=== PATIENT | female | born 1980 | race Hispanic/Latino ===

== ENCOUNTER 2018-07-25 14:30 | Observation (INO) | payer OTHER ==
[~2018-07-25] VITALS: Ht 167.6 cm; Wt 121.5 kg
[2018-07-25 14:30] VITALS: BP 161/100
[2018-07-25 14:52] LABS: BASOPHILS % (AUTO) 0.6 % (0.0-5.0); EOSINOPHILS % (AUTO) 0.3 % (0.0-8.0); HEMATOCRIT 37.6 % (36-48); LYMPHOCYTES % (AUTO) 17.6 % (21.0-51.0); MEAN CORPUSCULAR HEMOGLOBIN 29.3 pg (27.0-33.0); MEAN CORPUSCULAR VOLUME 86.3 fL (79-99); MONOCYTES % (AUTO) 6.2 % (3.0-13.0); NEUTROPHILS % (AUTO) 75.3 % (40.0-77.0); NUCLEATED RED BLOOD CELLS 0.1 % (0.0-0.19); PLATELET COUNT (AUTO) 306 K/uL (130-400); RED BLOOD CELL COUNT(AUTO) 4.35 MIL/uL (4.00-5.50); WHITE BLOOD COUNT (AUTO) 7.7 K/uL (4.8-10.8)
[2018-07-25 15:20] VITALS: BP 160/98
--- NOTE | 2018-07-25 15:20 | NUR ---
B/P-160/98,,ASYMPTOMATIC,,NO COMPLAINTS ,ALREADY TAKEN HER B/P MED ,STATES WORRIED OF HER DAUGHTER ,RECEIVED CALL FROM SCHOOL,COMPLAINTS OF NO CHEST PAIN ,NO SOB ,ADVISED TO COME TO ER IF ANY CHEST PAIN OR SOB ,VERBALIZES UNDERSTANDING
[2018-07-25] MEDS ORDERED: AMLO5TAB9 PO (16:00)
[2018-07-25] MEDS ORDERED: HYDR-4068 PO (16:01)
[2018-07-25] MEDS ORDERED: IBUP-2077 PO (16:01)
[2018-07-26] VITALS (25 sets, daily range): BP systolic 106–186; BP diastolic 61–108
[2018-07-26] MEDS ORDERED: CALDOLOR 800MG+NS 250ML 250 ML IV SCH (06:00)
[2018-07-26] MEDS: CLINDAMYCIN 600 MG/D5% WATER 50 ML IV SCH ×2 (06:00→07:15)
[2018-07-26] MEDS ORDERED: LACTATED RINGERS 1000ML 1,000 ML IV SCH (06:00)
[2018-07-26] MEDS ORDERED: MAGNESIUM SULFATE 1 GM/2 ML VIAL ONE (06:43)
[2018-07-26] MEDS ORDERED: KETAMINE 50MG/ML SYRINGE 50 MG/ML DISP.SYRIN IV ONE (06:43)
[2018-07-26] MEDS ORDERED: LIDOCAINE PF 2% 5ML ABBOJECT ONE (06:47)
[2018-07-26] MEDS ORDERED: SUCCINYLCHOLINE 200MG/10ML SYR ONE (06:47)
[2018-07-26] MEDS ORDERED: ONDANSETRON HCL 4 MG/2 ML VIAL ONE (06:48)
[2018-07-26] MEDS ORDERED: ROCURONIUM 10MG/1ML SYR 10 MG/ML ML ONE (06:49)
[2018-07-26] MEDS ORDERED: PROPOFOL 10 MG/ML 20ML VIAL IV ONE (06:49)
[2018-07-26] MEDS ORDERED: FENTANYL CITRATE PF 50 MCG/1 ML 5ML AMP IV ONE ×2 (06:50→07:40)
[2018-07-26] MEDS ORDERED: MIDAZOLAM HCL 1 MG/ML 2ML VIAL ONE (06:51)
[2018-07-26] MEDS ORDERED: METHYLENE BLUE 10 MG/ML AMP ONE (08:18)
[2018-07-26] MEDS ORDERED: GLYCOPYRROLATE 1 MG/5 ML SYRINGE ONE (08:27)
[2018-07-26] MEDS ORDERED: NEOSTIGMINE 5MG/5ML SYR IV ONE (08:27)
[2018-07-26] MEDS ORDERED: METOCLOPRAMIDE 10 MG/2 ML VIAL ONE (08:29)
[2018-07-26] MEDS ORDERED: DEXAMETHASONE SOD PHOSPHATE 4 MG/ML 1ML VIAL ONE (08:29)
[2018-07-26] MEDS ORDERED: HYDRALAZINE HCL 20 MG/ML VIAL ONE (09:10)
[2018-07-26] MEDS ORDERED: SIMETHICONE 80 MG TAB.CHEW PO PRN ×2 (09:15→16:30)
[2018-07-26] MEDS ORDERED: MEPERIDINE-PF 75 MG/ML SYG IM PRN (09:15)
[2018-07-26] MEDS ORDERED: DIPH,PERTUSS(ACELL),TET VAC/PF 0.5 ML VIAL IM SCH (09:15)
[2018-07-26] MEDS ORDERED: ONDANSETRON HCL 4 MG/2 ML VIAL IVP PRN (09:15)
[2018-07-26] MEDS ORDERED: ACETAMINOPHEN-CODEINE 300/30MG TAB PO PRN ×2 (09:15)
[2018-07-26] MEDS ORDERED: DOCUSATE SODIUM 100 MG CAP PO PRN (09:15)
[2018-07-26] MEDS ORDERED: BISACODYL 10 MG SUPP.RECT RC PRN (09:15)
[2018-07-26] MEDS ORDERED: HYDROCODONE/ACETAMINOPHEN 5/325 MG TAB PO PRN ×2 (09:15)
[2018-07-26] MEDS ORDERED: HYDROMORPHONE 1 MG/1 ML AMP ONE (09:18)
[2018-07-26] MEDS ORDERED: MEPERIDINE-PF 25 MG/ML SYG ONE ×3 (09:35→15:10)
--- NOTE | 2018-07-26 10:00 | NUR ---
REPORT RECEIVED FROM ELINA, SHREDDING MACHINE OPERATOR AND PATIENT WAS TRANSFERED AT THIS TIME. PATIENT C/O HAVING PAIN OF 11 AND IS VERY RESTLESS. PATIENT WAS GIVEN NORCO ON ARRIVAL AND VERBALIZED NOT WORKING AT ALL FOR HER PAIN. PATIENT WAS LATER MEDICATED WITH DEMEROL 75MGS AND PHENERGAN 25MGS IM. AFTER AN HOUR OF ARRIVAL PATIENT WAS RESTING COMFORTABLE.
[2018-07-26] MEDS ORDERED: MEPERIDINE-PF 50 MG/ML SYG ONE ×2 (10:23→15:10)
[2018-07-26] MEDS: PROMETHAZINE HCL 25 MG/ML 1ML AMPULE IM PRN ×3 (10:35→22:23)
--- NOTE | 2018-07-26 15:30 | NUR ---
MEDICATED AGAIN WITH DEMEROL AND PHENERGAN FOR C/O SEVERE LOWER BACK AND RECTAL PRESSURE. PATIENT TURNED ON SIDE AND BERRY CATHETER WAS DRAINED FOR 1000CC OR BLUE TINGED URINE. NO VAGINAL BLEEDING NOTED AT THIS TIME.
--- NOTE | 2018-07-26 16:15 | NUR ---
PATIENT SLEEPING SOUNDLY AT THIS TIME.
[2018-07-26] MEDS: CALDOLOR 800MG+NS 250ML 250 ML IVPB SCH (16:41)
[2018-07-26] MEDS: DEXTROSE 5 %-0.45 % NACL 1,000 ML IV PRN (18:16)
[2018-07-26] MEDS ORDERED: MEPERIDINE-PF 25 MG/ML SYG IM PRN ×2 (18:37→18:38)
[2018-07-26] MEDS ORDERED: MEPERIDINE-PF 50 MG/ML SYG IM PRN (18:45)
[2018-07-27 00:10] VITALS: BP 145/76
[2018-07-27] MEDS: CALDOLOR 800MG+NS 250ML 250 ML IVPB SCH (01:03)
[2018-07-27 03:19] VITALS: BP 146/74
[2018-07-27] MEDS: DEXTROSE 5 %-0.45 % NACL 1,000 ML IV PRN (05:39)
[2018-07-27 07:25] VITALS: BP 137/74
[2018-07-27 07:29] LABS: HEMATOCRIT 32.3 % (36-48); MEAN CORPUSCULAR HEMOGLOBIN 29.1 pg (27.0-33.0); MEAN CORPUSCULAR HGB CONC 33.3 g/dL (32.0-36.0); MEAN CORPUSCULAR VOLUME 87.4 fL (79-99); PLATELET COUNT (AUTO) 249 K/uL (130-400); RED CELL DISTRIBUTION WIDTH 15.8 % (11.0-15.5); WHITE BLOOD COUNT (AUTO) 9.2 K/uL (4.8-10.8)
--- NOTE | 2018-07-27 07:45 | NUR ---
ASSESSED PATIENT AND REMOVED BERRY CATHETER WAS REMOVED AND DISCARDED 350CC OF PALE YELLOW URINE. PATIENT HAS NO VAGINA BLEEDING AND AFTER PERICARE PATIENT WAS ASSISTED UP TO CHAIR. ENCOURAGED PATIENT TO AMBULATE IN HALLWAY.
[2018-07-27] MEDS ORDERED: IBUPROFEN 800 MG TAB PO SCH (08:15)
--- NOTE | 2018-07-27 10:30 | NUR ---
UP AMBULATING IN HALLWAY AND AFTER WALKING A COUPLE OF TIMES. PATIENT WENT BACK TO BED AND STATES BEING TOO SLEEPY TO SIT ON CHAIR.
[2018-07-27 11:23] VITALS: BP 136/70
--- NOTE | 2018-07-27 14:00 | NUR ---
PATIENT WAS GIVEN DISCHARGE INSTRUCTIONS AFTER SHE VOIDED TWICE AND AMBULATED IN HALLWAY. PATIENT VERBALIZED NEEDING TO WAIT FOR SPOUSE TO PICK HER UP AFTER 1500. PATIENT IS STABLE AND DENIES PAIN.
[2018-07-27 15:45] VITALS: BP 142/72
--- NOTE | 2018-07-27 16:00 | NUR ---
PATIENT WAS TAKEN VIA W/C TO FAMILY VEHICLE AND WAS DISCHARGED TO SPOUSE IN STABLE CONDITION.
== END 2018-07-27 16:00 | disposition home or self-care (01) ==
LOC: EDSTATUS 14:30 → INTOOBSV 07-26 05:42 → OBSVTOIN 07-26 05:42 → DAHIP 07-26 05:42 → OBSVTOIN 07-26 09:51 → INTOOBSV 07-26 09:51 → WSH 07-26 09:51
PROVIDERS: ADMIT Obstetrics & Gynecology; ATTEND Obstetrics & Gynecology
DX: N92.1 Excessive and frequent menstruation with irregular cycle (principal); N83.201 Unspecified ovarian cyst, right side; N83.10 Corpus luteum cyst of ovary, unspecified side; N81.5 Vaginal enterocele
CPT/HCPCS: 36415 ×2; 58270; 84703; 85025; 85027; 86850; 86900; 86901; 96365; 96366; 96372; A4344; A4351; A4510; A4600; C1769; G0378 ×35; J0330; J0360; J1100; J1170; J1741 ×3; J2001; J2175 ×7; J2250; J2405; J2550 ×3; J2704; J2710; J2765; J3010 ×2; J3475; J3490 ×3; J7030; J7120 ×2; Q9968; 88307; 90715

== ENCOUNTER 2018-07-27 20:10 | Emergency (ER) | payer OTHER ==
[~2018-07-27 20:10] MED LIST: AMLO5TAB9 PO; HYDR-4068 PO; IBUP-2077 PO
== END 2018-07-27 21:12 | disposition home or self-care (01) ==
LOC: EDH 20:10
DX: K56.41 Fecal impaction (principal); I10 Essential (primary) hypertension; Z90.710 Acquired absence of both cervix and uterus; Z87.442 Personal history of urinary calculi; Z90.49 Acquired absence of other specified parts of digestive tract; Z88.0 Allergy status to penicillin

== ENCOUNTER 2018-08-17 18:21 | Inpatient (IN) | payer OTHER | END 2018-08-23 18:30 | LOC: EDH 18:21 → 3DH 08-21 18:25 → EDHIP 22:22 → 2DH 23:52 | DX: T81.41XA Infection following a procedure, superficial incisional surgical site, initial encounter (principal); A41.9 Sepsis, unspecified organism; E43 Unspecified severe protein-calorie malnutrition; R65.20 Severe sepsis without septic shock; K65.1 Peritoneal abscess; N13.6 Pyonephrosis; L02.91 Cutaneous abscess, unspecified; Z68.41 Body mass index [BMI] 40.0-44.9, adult; E87.6 Hypokalemia; E66.01 Morbid (severe) obesity due to excess calories ==

== ENCOUNTER 2018-08-30 07:52 | Day surgery (SDC) | payer OTHER ==
[~2018-08-30] VITALS: Ht 167.6 cm; Wt 114.3 kg
[~2018-08-30 07:52] MED LIST changes: -AMLO5TAB9 PO; +CLIN300C9 PO; -HYDR-4068 PO; +LEVO500T89 PO; +TRAM50TA4 PO
--- NOTE | 2018-08-30 08:10 | NUR ---
PATIENT ARRIVED FROM [facility] IN NO DISTRESS. PATIENT AAOX3, PATIENT HAS A DRAINAGE BAG TO LEFT MID OUTER ABDOMEN WITH 10 CYPRIOT CATHETER. SMALL AMOUNT OF DRAINAGE. DRESSING TO SITE IS CLEAN AND DRY.PATIENT VOMITED WHEN RAFAEL PICC LINE WAS FLUSHED WITH 0.9% NS. PER PATIENT SHE USUALLY DOES GET NAUSEATED WHEN PICC LINE IS FLUSHED.
[2018-08-30 08:47] VITALS: BP 153/100
--- NOTE | 2018-08-30 09:10 | NUR ---
MEDICATIONS VERIFIED WITH SOLARA THAT PT DID NOT RECEIVE LOVENOX. NO LOVENOX GIVEN THIS AM.
--- NOTE | 2018-08-30 09:20 | NUR ---
RESPIRATORY ASSESSMENT PT UP TO RR W/ MINIMAL ASSIST X1. WHILE IN RR, PT STATED "I CANT BREATH" DENIES PAIN. PT ASSISTED BACK TO BED WITH ASSIST OF 2. O2 SATS 100%, BUT PLACED ON NC 2L FOR SOA. ONCE PT LAID BACK DOWN STATES "THAT'S BETTER". B/P 154/94, HR 80'S. WILL CONTINUE TO MONITOR.
--- NOTE | 2018-08-30 09:45 | NUR ---
FOLLOW UP RESPIRATORY ASSESSMENT LYING IN BED IN NO ACUTE DISTRESS. DENIES SOA OR PAIN. O2 REMOVED O2 SATS 100%. INSTRUCTED TO CALL FOR ANY PROBLEMS. CALL LIGHT W/IN REACH, BED RAILS UP X2, BED IN LOWEST POSITION.
[2018-08-30] MEDS ORDERED: LIDOCAINE HCL 1% MDV 50ML VIAL ONE (09:50)
[2018-08-30] MEDS ORDERED: IODIXANOL 320 MG/ML 100 ML VIAL ONE (09:50)
--- NOTE | 2018-08-30 10:00 | NUR ---
PROCEDURE TRANSFERRED TO [facility]UNDERER HAND BY BRAEDEN DOLAN. AWAKE IN NO ACUTE DISTRESS.
--- NOTE | 2018-08-30 10:35 | NUR ---
abscess catheter prepped: with betadine while pt in CT scan. Suture removed and drain removed intact. Gauze secured with opsite Pt returned to daypt
[2018-08-30 10:50] VITALS: BP 136/89
--- NOTE | 2018-08-30 10:50 | NUR ---
POST-PROCEDURE RECEIVED BACK VIA BED S/P ABCESSOGRAM, CT SCAN, DRAIN REMOVAL. PT AWAKE IN NO ACUTE DISTRESS. CONNECTED TO CONTINUOUS CARDIOPULMONARY MONITORING. DENIES PAIN. DRESSING TO LEFT LOWER ABDOMEN CD&I.
--- NOTE | 2018-08-30 11:18 | NUR ---
REPORT REPORT CALLED TO AYSE OLIVER AT [facility] USING SBAR. VERBALIZED UNDERSTANDING.
--- NOTE | 2018-08-30 11:35 | NUR ---
[facility] CALLED FOR TRANSPORT TO [facility].
--- NOTE | 2018-08-30 12:25 | NUR ---
DISCHARGE DISCHARGE INSTRUCTIONS REVIEWED WITH PT INCLUDING TO KEEP DRESSING CLEAN, DRY, AND INTACT FOR 24 HOURS, CONTINUE REGULAR DIET, AND PT WOULD RETURN TO [facility]. PT VERBALIZED UNDERSTANDING.
--- NOTE | 2018-08-30 12:42 | NUR ---
DISCHARGE DISCHARGE VIA STRETCHER BY [facility] BACK TO [facility]. AWAKE IN NO ACUTE DISTRESS. DRESSING LLQ CD&I, PICC TO [facility].
[2018-08-30 12:43] VITALS: BP 145/90
== END 2018-08-30 12:42 ==
LOC: CLH 07:52
PROVIDERS: ATTEND Internal Medicine Infectious Disease
DX: L02.211 Cutaneous abscess of abdominal wall (principal); R65.20 Severe sepsis without septic shock; E66.01 Morbid (severe) obesity due to excess calories; N39.0 Urinary tract infection, site not specified; K57.92 Diverticulitis of intestine, part unspecified, without perforation or abscess without bleeding; Z90.49 Acquired absence of other specified parts of digestive tract
CPT/HCPCS: 49424; 74176; 74177; 76080; A4606; J1644; J3490; Q9967

== ENCOUNTER 2019-04-22 20:51 | Emergency (ER) | payer SELFPAY ==
[2019-04-22 21:36] LABS: BASOPHILS % (AUTO) 0.3 % (0.0-5.0); EOSINOPHILS % (AUTO) 1.3 % (0.0-8.0); HEMATOCRIT 35.4 % (36-48); LYMPHOCYTES % (AUTO) 22.1 % (21.0-51.0); MEAN CORPUSCULAR HEMOGLOBIN 27.6 pg (27.0-33.0); MEAN CORPUSCULAR HGB CONC 32.5 g/dL (32.0-36.0); MEAN CORPUSCULAR VOLUME 85.1 fL (79-99); MONOCYTES % (AUTO) 6.3 % (3.0-13.0); NEUTROPHILS % (AUTO) 69.7 % (40.0-77.0); PLATELET COUNT (AUTO) 269 K/uL (130-400); RED BLOOD CELL COUNT(AUTO) 4.16 MIL/uL (4.00-5.50); RED CELL DISTRIBUTION WIDTH 14.4 % (11.0-15.5); WHITE BLOOD COUNT (AUTO) 9.7 K/uL (4.8-10.8)
[2019-04-22] MEDS ORDERED: ONDANSETRON HCL 4 MG/2 ML VIAL ONE (21:37)
[2019-04-22] MEDS ORDERED: SODIUM CHLORIDE 0.9% 1000ML 1,000 ML IV ONE (21:38)
[2019-04-22] MEDS ORDERED: KETOROLAC TROMETHAMINE 15MG/ML ONE (21:48)
[2019-04-22 21:56] LABS: CREATININE 0.9 mg/dL (0.5-1.5); POTASSIUM 3.8 mmol/L (3.5-5.1)
[2019-04-22 22:01] LABS: ALBUMIN 3.2 g/dL (3.5-5.0); BILIRUBIN,TOTAL 0.2 mg/dL (0.2-1.0); TOTAL PROTEIN, SERUM 7.9 g/dL (6.0-8.3)
[2019-04-22 22:36] LABS: APPEARANCE,URINE Clear (CLEAR); BILIRUBIN,URINE Negative (NEGATIVE); COLOR,URINE Yellow (YELLOW); GLUCOSE, URINE (UA) Negative (NEGATIVE); KETONES,URINE Negative (NEGATIVE); LEUKOCYTE ESTERASE ,URINE Negative (NEGATIVE); NITRATE,URINE Negative (NEGATIVE); OCCULT BLOOD,URINE Negative (NEGATIVE); PROTEIN,URINE Negative (NEGATIVE); UROBILINOGEN,URINE 0.2 mg/dL (0.2-1.0)
[2019-04-22 22:38] LABS: HCG,QUAL RESULT NEGATIVE (NEGATIVE)
== END 2019-04-22 22:57 | disposition home or self-care (01) ==
LOC: EDH 20:51
DX: N20.0 Calculus of kidney (principal); I10 Essential (primary) hypertension; Z90.710 Acquired absence of both cervix and uterus; Z98.890 Other specified postprocedural states; Z88.0 Allergy status to penicillin
CPT/HCPCS: 36415; 74176; 80053; 81003; 81025; 85025; 96374; 96375; 99285; J1885; J2405; J7030

== ENCOUNTER 2019-12-01 15:59 | Emergency (ER) | payer OTHER ==
[2019-12-01] MEDS ORDERED: SODIUM CHLORIDE 0.9% 1000ML 1,000 ML IV ONE (16:00)
[2019-12-01 16:42] LABS: BASOPHILS % (AUTO) 0.3 % (0.0-5.0); EOSINOPHILS % (AUTO) 2.2 % (0.0-8.0); HEMATOCRIT 39.6 % (36-48); LYMPHOCYTES % (AUTO) 25.2 % (21.0-51.0); MEAN CORPUSCULAR HGB CONC 33.6 g/dL (32.0-36.0); MEAN CORPUSCULAR VOLUME 89.4 fL (79-99); MONOCYTES % (AUTO) 6.4 % (3.0-13.0); NEUTROPHILS % (AUTO) 65.5 % (40.0-77.0); PLATELET COUNT (AUTO) 259 K/uL (130-400); RED BLOOD CELL COUNT(AUTO) 4.43 MIL/uL (4.00-5.50); RED CELL DISTRIBUTION WIDTH 13.5 % (11.0-15.5); WHITE BLOOD COUNT (AUTO) 7.2 K/uL (4.8-10.8)
[2019-12-01 17:12] LABS: CREATININE 0.9 mg/dL (0.5-1.5); POTASSIUM 3.7 mmol/L (3.5-5.1)
[2019-12-01 17:17] LABS: ALBUMIN 3.3 g/dL (3.5-5.0); BILIRUBIN,TOTAL 0.4 mg/dL (0.2-1.0); TOTAL PROTEIN, SERUM 8.3 g/dL (6.0-8.3)
[2019-12-01 17:48] LABS: APPEARANCE,URINE Clear (CLEAR); BILIRUBIN,URINE Negative (NEGATIVE); COLOR,URINE Yellow (YELLOW); GLUCOSE, URINE (UA) Negative (NEGATIVE); KETONES,URINE Negative (NEGATIVE); LEUKOCYTE ESTERASE ,URINE Negative (NEGATIVE); NITRATE,URINE Negative (NEGATIVE); OCCULT BLOOD,URINE Negative (NEGATIVE); PROTEIN,URINE Negative (NEGATIVE)
== END 2019-12-01 20:00 | disposition home or self-care (01) ==
LOC: EDH 15:59
DX: M54.12 Radiculopathy, cervical region (principal); R07.89 Other chest pain; R10.31 Right lower quadrant pain; F06.4 Anxiety disorder due to known physiological condition; I10 Essential (primary) hypertension; Z90.49 Acquired absence of other specified parts of digestive tract; Z90.710 Acquired absence of both cervix and uterus; Z88.0 Allergy status to penicillin
CPT/HCPCS: 36415; 71045; 74176; 80053; 81003; 83690; 84484 ×2; 85025; 93005 ×2; 96360; 96361; 99285; J7030

== ENCOUNTER 2020-02-16 16:38 | Emergency (ER) | payer SELFPAY ==
[2020-02-16 17:29] LABS: BASOPHILS % (AUTO) 0.4 % (0.0-5.0); HEMATOCRIT 39.2 % (36-48); LYMPHOCYTES % (AUTO) 22.9 % (21.0-51.0); MEAN CORPUSCULAR HEMOGLOBIN 30.1 pg (27.0-33.0); MEAN CORPUSCULAR HGB CONC 32.9 g/dL (32.0-36.0); MEAN CORPUSCULAR VOLUME 91.6 fL (79-99); MONOCYTES % (AUTO) 5.7 % (3.0-13.0); NEUTROPHILS % (AUTO) 67.8 % (40.0-77.0); PLATELET COUNT (AUTO) 265 K/uL (130-400); RED BLOOD CELL COUNT(AUTO) 4.28 MIL/uL (4.00-5.50); RED CELL DISTRIBUTION WIDTH 13.4 % (11.0-15.5); WHITE BLOOD COUNT (AUTO) 8.5 K/uL (4.8-10.8)
[2020-02-16 17:38] LABS: CREATININE 0.9 mg/dL (0.5-1.5); POTASSIUM 3.9 mmol/L (3.5-5.1)
[2020-02-16 17:41] LABS: INR 0.92 (0.85-1.15); PARTIAL THROMBOPLASTIN TIME 25.9 SEC (26.3-35.5)
[2020-02-16 17:43] LABS: ALBUMIN 3.3 g/dL (3.5-5.0); BILIRUBIN,TOTAL 0.3 mg/dL (0.2-1.0); TOTAL PROTEIN, SERUM 8.1 g/dL (6.0-8.3)
== END 2020-02-16 18:38 | disposition home or self-care (01) ==
LOC: EDH 16:38
DX: R07.89 Other chest pain (principal); I10 Essential (primary) hypertension; Z88.0 Allergy status to penicillin; Z90.710 Acquired absence of both cervix and uterus; Z90.49 Acquired absence of other specified parts of digestive tract
CPT/HCPCS: 36415; 71045; 80053; 82550; 84484; 85025; 85610; 85730; 93005

== ENCOUNTER 2021-04-30 15:25 | Emergency (ER) | payer SELFPAY ==
[~2021-04-30] VITALS: Ht 167.6 cm; Wt 122.5 kg
[~2021-04-30 15:25] MED LIST changes: +CLIN-141 PO; -CLIN300C9 PO; -LEVO500T89 PO; +LEVO500T90 PO
[2021-04-30 15:26] VITALS: BP 172/84
[2021-04-30] MEDS ORDERED: D-ME1POW16 PO (17:17)
[2021-04-30] MEDS ORDERED: ACETAMINOPHEN WITH CODEINE 1 TAB TAB ONE (17:26)
[2021-04-30] MEDS ORDERED: ACETAMINOPHEN WITH CODEINE 1 TAB TAB PO ONE (17:30)
[2021-04-30] MEDS ORDERED: NIFEDIPINE 10 MG CAP PO SCH (17:30)
== END 2021-04-30 17:40 | disposition home or self-care (01) ==
LOC: EDH 15:25
DX: J06.9 Acute upper respiratory infection, unspecified (principal); Z20.822 Contact with and (suspected) exposure to COVID-19; Z88.0 Allergy status to penicillin; Z79.1 Long term (current) use of non-steroidal anti-inflammatories (NSAID); Z90.49 Acquired absence of other specified parts of digestive tract
CPT/HCPCS: 87635; 87804 ×2; 99283; C9803

== ENCOUNTER 2021-05-01 21:32 | Emergency (ER) | payer OTHER, SELFPAY ==
[~2021-05-01] VITALS: Ht 167.6 cm; Wt 122.5 kg
[~2021-05-01 21:32] MED LIST changes: +D-ME1POW16 PO
[2021-05-01] MEDS ORDERED: ACETAMINOPHEN WITH CODEINE 1 TAB TAB PO ONE (22:00)
[2021-05-01] MEDS ORDERED: PROMETHAZINE HCL 25 MG/ML 1ML AMPULE IM ONE (22:00)
[2021-05-01] MEDS ORDERED: NIFEDIPINE 10 MG CAP PO ONE (22:00)
[2021-05-01 22:13] LABS: BASOPHILS % (AUTO) 0.1 % (0.0-5.0); EOSINOPHILS % (AUTO) 2.4 % (0.0-8.0); HEMATOCRIT 39.7 % (36-48); LYMPHOCYTES % (AUTO) 14.8 % (21.0-51.0); MEAN CORPUSCULAR VOLUME 91.1 fL (79-99); MONOCYTES % (AUTO) 7.4 % (3.0-13.0); NEUTROPHILS % (AUTO) 74.9 % (40.0-77.0); PLATELET COUNT (AUTO) 217 K/uL (130-400); RED BLOOD CELL COUNT(AUTO) 4.36 MIL/uL (4.00-5.50); RED CELL DISTRIBUTION WIDTH 13.3 % (11.0-15.5)
[2021-05-01 22:23] LABS: CREATININE 1.3 mg/dL (0.5-1.5); POTASSIUM 3.6 mmol/L (3.5-5.1)
[2021-05-01 22:28] LABS: ALBUMIN 3.7 g/dL (3.5-5.0); BILIRUBIN,TOTAL 0.4 mg/dL (0.2-1.0); TOTAL PROTEIN, SERUM 8.5 g/dL (6.0-8.3)
[2021-05-01] MEDS ORDERED: 0.9%NACL 1000ML 1,000 ML IV ONE (23:00)
[2021-05-01 23:21] VITALS: BP 145/85
== END 2021-05-02 00:05 | disposition home or self-care (01) ==
LOC: EDH 21:32
DX: U07.1 COVID-19 (principal); E86.0 Dehydration; I10 Essential (primary) hypertension; E66.9 Obesity, unspecified; Z79.1 Long term (current) use of non-steroidal anti-inflammatories (NSAID); Z79.899 Other long term (current) drug therapy; Z88.0 Allergy status to penicillin; Z90.49 Acquired absence of other specified parts of digestive tract; Z68.41 Body mass index [BMI] 40.0-44.9, adult
CPT/HCPCS: 36415; 71045; 80053; 85025; 87635; 87804 ×2; 87880; 96360; 96372; 99284; C9803; J2550; J7030

== ENCOUNTER 2021-10-21 12:01 | Emergency (ER) | payer OTHER ==
[~2021-10-21] VITALS: Ht 170.2 cm; Wt 123.4 kg
[2021-10-21 12:04] VITALS: BP 159/101
[2021-10-21 12:24] LABS: APPEARANCE,URINE CLEAR (CLEAR); BILIRUBIN,URINE NEGATIVE (NEGATIVE); COLOR,URINE YELLOW (YELLOW); GLUCOSE, URINE (UA) NEGATIVE (NEGATIVE); KETONES,URINE NEGATIVE (NEGATIVE); LEUKOCYTE ESTERASE ,URINE NEGATIVE (NEGATIVE); NITRATE,URINE NEGATIVE (NEGATIVE); OCCULT BLOOD,URINE NEGATIVE (NEGATIVE); PROTEIN,URINE NEGATIVE (NEGATIVE); UROBILINOGEN,URINE 0.2 mg/dL (0.2-1.0)
[2021-10-21 12:42] LABS: INFLUENZA TYPE A NEGATIVE FOR TYPE A (NEG); INFLUENZA TYPE B NEGATIVE FOR TYPE B (NEG)
[2021-10-21 13:09] LABS: BASOPHILS % (AUTO) 0.4 % (0.0-5.0); EOSINOPHILS % (AUTO) 2.1 % (0.0-8.0); HEMATOCRIT 41.4 % (36-48); LYMPHOCYTES % (AUTO) 23.2 % (21.0-51.0); MEAN CORPUSCULAR HEMOGLOBIN 30.8 pg (27.0-33.0); MEAN CORPUSCULAR HGB CONC 33.6 g/dL (32.0-36.0); MEAN CORPUSCULAR VOLUME 91.6 fL (79-99); MONOCYTES % (AUTO) 5.4 % (3.0-13.0); NEUTROPHILS % (AUTO) 68.5 % (40.0-77.0); PLATELET COUNT (AUTO) 283 K/uL (130-400); RED BLOOD CELL COUNT(AUTO) 4.52 MIL/uL (4.00-5.50); RED CELL DISTRIBUTION WIDTH 13.1 % (11.0-15.5); WHITE BLOOD COUNT (AUTO) 8.6 K/uL (4.8-10.8)
[2021-10-21 13:26] LABS: BILIRUBIN,TOTAL 0.5 mg/dL (0.2-1.0); POTASSIUM 4.1 mmol/L (3.5-5.1); TOTAL PROTEIN, SERUM 8.4 g/dL (6.0-8.3)
[2021-10-21 13:31] LABS: ALBUMIN 3.5 g/dL (3.5-5.0)
[2021-10-21] MEDS ORDERED: KETOROLAC 30MG VIAL (30MG/ML) IVP ONE (14:00)
[2021-10-21] MEDS ORDERED: ONDANSETRON 4MG INJ IVP ONE (14:00)
[2021-10-21] MEDS ORDERED: TAMSULOSIN HCL 0.4 MG CAP.ER.24H PO SCH (15:00)
[2021-10-21] MEDS ORDERED: IBUP-2071 PO (15:17)
[2021-10-21] MEDS ORDERED: TAMS-1 PO (15:17)
[2021-10-21] MEDS ORDERED: ONDA4TAB10 PO (15:17)
== END 2021-10-21 15:31 | disposition home or self-care (01) ==
LOC: EDH 12:01
DX: N20.0 Calculus of kidney (principal); N83.201 Unspecified ovarian cyst, right side; Z20.822 Contact with and (suspected) exposure to COVID-19; E66.9 Obesity, unspecified; Z68.41 Body mass index [BMI] 40.0-44.9, adult; Z88.0 Allergy status to penicillin; Z79.899 Other long term (current) drug therapy; Z79.1 Long term (current) use of non-steroidal anti-inflammatories (NSAID); Z90.49 Acquired absence of other specified parts of digestive tract
CPT/HCPCS: 36415; 74176; 80053; 81003; 83690; 84484; 85025; 87635; 87804 ×2; 93005; 96374; 96375; 99285; C9803; J1885; J2405